=== PATIENT | male | born 1990 | race Caucasian/White ===

== ENCOUNTER 2019-12-29 09:24 | Emergency (ER) | payer MEDICAID ==
[~2019-12-29] VITALS: Ht 76.2 cm; Wt 80.0 kg
[2019-12-29] MEDS ORDERED: KETO-100 OS (09:26)
[2019-12-29] MEDS ORDERED: FLUORESCEIN SODIUM 1 MG STRIP OU ONE (10:30)
[2019-12-29] MEDS ORDERED: PROPARACAINE HCL 0.5% 15 ML OPHTHALMIC SOLUTION OU ONE (10:30)
[2019-12-29] MEDS ORDERED: OFLOXACIN 0.3% 5 ML OPHTHALMIC SOLUTION OS ONE (10:45)
[2019-12-29 11:22] VITALS: BP 129/79
== END 2019-12-29 11:26 | disposition home or self-care (01) ==
LOC: EMS 09:28
DX: S05.02XA Injury of conjunctiva and corneal abrasion without foreign body, left eye, initial encounter (principal); R03.0 Elevated blood-pressure reading, without diagnosis of hypertension; X58.XXXA Exposure to other specified factors, initial encounter; Y93.89 Activity, other specified; Y92.89 Other specified places as the place of occurrence of the external cause; Y99.8 Other external cause status
CPT/HCPCS: Z7502; Z7610

== ENCOUNTER 2020-10-29 15:27 | Emergency (ER) | payer MEDICAID ==
[~2020-10-29] VITALS: Ht 175.3 cm; Wt 72.7 kg
[~2020-10-29 15:27] MED LIST: KETO-100 OS
[2020-10-29 15:30] VITALS: BP 119/73
[2020-10-29] MEDS ORDERED: IBUPROFEN 100 MG/5 ML SUSPENSION UDCUP PO ONE (15:45)
== END 2020-10-29 17:25 | disposition home or self-care (01) ==
LOC: EMS 15:33
DX: J02.9 Acute pharyngitis, unspecified (principal); R50.9 Fever, unspecified; Z20.822 Contact with and (suspected) exposure to COVID-19
CPT/HCPCS: 87430; 99283; U0003